=== PATIENT | male | born 1980 | race Two or more races ===

== ENCOUNTER 2020-03-31 16:51 | Emergency (ER) | payer OTHER ==
[~2020-03-31] VITALS: Ht 177.8 cm; Wt 113.4 kg
[2020-03-31] MEDS ORDERED: ATORVASTATIN CA20 MG PO (17:09)
== END 2020-03-31 22:03 | disposition home or self-care (01) ==
LOC: ER 16:51
DX: N20.1 Calculus of ureter (principal); K76.0 Fatty (change of) liver, not elsewhere classified

== ENCOUNTER → 2024-09-14 | Emergency (ER) | payer OTHER ==
[~2024-09-14] VITALS: Ht 180.3 cm; Wt 84.8 kg
[~2024-09-14] MED LIST: ATORVASTATIN CA20 MG PO; KETOROLAC TROMETHAMINE 60 MG VIAL IM ONE; NORFLEX100MG PO; ORPHENADRINE CITRATE 30 MG/ML AMPUL IM ONE; ORPHENADRINE CITRATE 30 MG/ML AMPUL ONE
== END | disposition home or self-care (01) ==
LOC: ER 11:23
DX: M25.511 Pain in right shoulder (principal)